=== PATIENT | male | born 1980 | race Hispanic/Latino ===

== ENCOUNTER 2021-01-25 11:18 | Inpatient (IN) | payer SELFPAY ==
[~2021-01-25 11:18] MED LIST: Iopamidol-370 76% 500 ML 1 ML ONE
[2021-01-25] MEDS ORDERED: Acetaminophen 500 MG TAB ONE (11:50)
[2021-01-25] MEDS ORDERED: Ibuprofen 800 MG TAB ONE (11:50)
[2021-01-25 12:19] LABS: ALT (SGPT) 45 U/L (8-55); AST (SGOT) 99 U/L (5-34); Albumin 3.5 g/dL (3.5-5.0); Alkaline Phosphatase 42 U/L (40-110); Anion Gap 15 mmol/L (10-20); BUN (Urea Nitrogen) 14 mg/dL (8.9-20.6); Bilirubin, Total 1.9 mg/dL (0.2-1.2); CK (CPK) 250 U/L (30-200); Calc. Creatinine Clearance 0 mL/min (70-130); Carbon Dioxide 22 mmol/L (22-29); Chloride 103 mmol/L (98-107); Globulin 2.3 g/dL (2.4-3.5); Glucose 223 mg/dL (70-105); Lipase 37 U/L (8-78); Potassium 3.9 mmol/L (3.5-5.1); Protein, Total 5.8 g/dL (6.0-8.3); Sodium 136 mmol/L (136-145)
[2021-01-25 12:44] LABS: Hemoglobin 4.3 g/dL (14.0-18.0); Mean Corpuscular HGB CONC 35.9 g/dL (32.0-36.0); Mean Corpuscular Hemoglobin 43.8 pg (27.0-31.0); Mean Platelet Volume 12.7 fL (7.4-10.4); Platelet Count 37 thou/uL (130-400); RBC Distribution Width 28.9 % (11.5-14.5); Red Blood Cell (RBC) Count 0.99 mill/uL (4.70-6.10); Reflex for Review?? YES; White Blood Cell (WBC) Count 4.3 thou/uL (4.8-10.8)
[2021-01-25 12:45] LABS: Anisocytosis MODERATE=16-30 cells (100X) (0-5/hpf); Band 15 % (5-11); Basophilic Stippling SLIGHT = 1-2 cells (100X) (None Seen); Hypochromia SLIGHT = 6-15 cells (100X) (0-5/hpf); Lymphocytes 39 % (21-51); MDiff Complete? YES; Macrocytosis MODERATE=16-30 cells (100X) (0-5/hpf); Monocytes 3 % (0-10); Neutrophil 38 % (42-75); Nucleated RBC 8 % (0); Platelet Morphology Comment Appears Decreased; Polychromasia MARKED = >4 cells (100X) (0-2/hpf); Reactive Lymphocytes 5 % (0-10); Schistocytes SLIGHT = 2-5 cells (100X) (0-1/hpf); Tear Drops MODERATE= 6-15 cells (100X) (0-1/hpf)
[2021-01-25 13:29] LABS: SARS-CoV-2 NAA Rapid Test Not Detected (NotDetected)
[2021-01-25 14:02] LABS: INR-International Normal Ratio 1.3; PTT 43.5 sec (22.9-36.1); Prothrombin Time 16.9 sec (12.0-14.7)
[2021-01-25 14:09] LABS: Alcohol Less than 10 mg/dL (Less than 10); Salicylate Less than 8.0 mg/dL (15.0-30.0)
[2021-01-25] MEDS ORDERED: Multivitamins, Adult 10 ML, Thiamine HCl 100 MG, Folic Acid 1 MG in Dextrose 5 %-0.45 %... IV SCH (14:15)
[2021-01-25] MEDS ORDERED: Pantoprazole 40 MG VIAL ONE (14:35)
[2021-01-25] MEDS ORDERED: Ondansetron PF 4 MG/2 ML Vial IVP PRN (15:47)
[2021-01-25] MEDS ORDERED: Acetaminophen 325 MG TAB PO PRN (15:47)
[2021-01-25 17:03] LABS: Bacteria/HPF None Seen HPF (None Seen); Bilirubin Negative (Negative); Blood, Urine Negative (Negative); Clarity Clear (Clear); Glucose, Urine (Dipstick) 50 mg/dL (Negative); Ketone, Urine 40 mg/dL (Negative); Leukocyte Negative Leu/uL (Negative); Nitrite Negative (Negative); Protein, Urine (Dipstick) 20 mg/dL (Neg-Trace); RBC/HPF 0-3 HPF (0-3); Specific Gravity, Urine 1.046 (1.002-1.036); Squamous Epithelial None Seen HPF (0-3); WBC/HPF 0-3 HPF (0-3); pH, Urine 6.5 (5.0-9.0)
[2021-01-25 17:06] LABS: Urine Culture Reflex No No
[2021-01-25 17:17] VITALS: BMI 21.6
[2021-01-25 17:18] LABS: Amphetamine Not Detected (NotDetected); Barbiturates Screen Not Detected (NotDetected); Benzodiazepine Screen Not Detected (NotDetected); Cocaine Metabolite Screen Not Detected (NotDetected); Medtox Control Line Valid? VALID (VALID); Medtox Reader # READER 4; Methadone Not Detected (NotDetected); Methamphetamine Not Detected (NotDetected); Opiate Screen Not Detected (NotDetected); Oxycodone Screen Not Detected (NotDetected); Phencyclidine (PCP) Not Detected (NotDetected); THC/Cannabinoid Screen Not Detected (NotDetected); Tricyclic Screen Not Detected (NotDetected)
[2021-01-25] MEDS: Pantoprazole 40 MG VIAL IVP SCH (22:26)
[2021-01-26] MEDS ORDERED: Dextrose 50% Abboject 50 ML SYRINGE IVP PRN (00:45)
[2021-01-26] MEDS ORDERED: Dextrose 5% in Water 1,000 ML IV PRN (00:45)
[2021-01-26] MEDS ORDERED: HumaLOG 300 UNITS/3 ML VIAL SC PRN (00:45)
[2021-01-26 05:32] LABS: Hemoglobin A1c 6.4 % (4.0-6.0)
[2021-01-26 05:53] LABS: ALT (SGPT) 45 U/L (8-55); AST (SGOT) 72 U/L (5-34); Albumin 3.1 g/dL (3.5-5.0); Alkaline Phosphatase 42 U/L (40-110); Anion Gap 11 mmol/L (10-20); BUN (Urea Nitrogen) 13 mg/dL (8.9-20.6); Bilirubin, Total 2.2 mg/dL (0.2-1.2); Calc. Creatinine Clearance 128 mL/min (70-130); Calcium 7.8 mg/dL (7.8-10.44); Carbon Dioxide 23 mmol/L (22-29); Cardiac Risk 4.3 (Less than 4.5); Chloride 106 mmol/L (98-107); Cholesterol 43 mg/dl (< 200 Desired); Glucose 252 mg/dL (70-105); HDL Cholesterol 10 mg/dL (>60 Neg Risk); LDL Cholesterol, Calculated 11 mg/dL; Potassium 4.2 mmol/L (3.5-5.1); Protein, Total 5.1 g/dL (6.0-8.3); Sodium 136 mmol/L (136-145); Triglycerides 110 mg/dL (Less than 150)
[2021-01-26 06:09] LABS: Vitamin B12 173 pg/mL (211-911)
[2021-01-26 06:13] LABS: Anisocytosis MARKED = >30 cells (100X) (0-5/hpf); Band 19 % (5-11); Eosinophils 1 % (0-10); Hemoglobin 8.7 g/dL (14.0-18.0); Lymphocytes 42 % (21-51); MDiff Complete? YES; Mean Corpuscular HGB CONC 36.3 g/dL (32.0-36.0); Mean Corpuscular Hemoglobin 37.6 pg (27.0-31.0); Mean Platelet Volume 16.2 fL (7.4-10.4); Monocytes 5 % (0-10); Neutrophil 33 % (42-75); Nucleated RBC 8 % (0); Platelet Count 37 thou/uL (130-400); Platelet Morphology Comment Appears Decreased; RBC Distribution Width 24.6 % (11.5-14.5); White Blood Cell (WBC) Count 3.4 thou/uL (4.8-10.8)
[2021-01-26 06:16] LABS: HBCM Index 0.07 S/CO (0-0.79); HBSAg Index 0.25 S/CO (0-0.99); Hep A IgM AB Non-Reactive (NonReactive); Hep A IgM S/CO 0.11 S/CO (0-0.79); Hep B Surf Ag Non-Reactive S/CO (NonReactive); Hep C IgG Ab Non-Reactive (NonReactive); Hep C Index 0.05 S/CO (0-0.79); Hepatitis B Core IgM Abs Non-Reactive (NonReactive)
[2021-01-26] MEDS: Cyanocobalamin 1000 MCG/ML VIAL IM SCH (09:15)
[2021-01-26] MEDS: Pantoprazole 40 MG VIAL IVP SCH ×2 (09:16→19:53)
[2021-01-26] MEDS ORDERED: PROPOFOL 40 ML ONE (10:15)
[2021-01-26] MEDS ORDERED: Ketamine 50 MG/ML (10ML VIAL) ONE (10:15)
[2021-01-26] MEDS ORDERED: PROPOFOL 200 MG/20 ML VIAL ONE (10:47)
[2021-01-26] MEDS: Sodium Chloride 0.9% 1,000 ML IV SCH ×2 (11:58→19:53)
[2021-01-26] MEDS: Multivitamins, Adult 10 ML, Folic Acid 1 MG, Thiamine HCl 100 MG in Dextrose 5 %-0.45 %... IV SCH (13:03)
[2021-01-26] MEDS: HumaLOG 300 UNITS/3 ML VIAL SC PRN (17:44)
[2021-01-26] MEDS ORDERED: Vancomycin 1.5 GRAM/300 ML BAG 1.5 GM in Premix Bag 1 BAG IVPB SCH ×2 (18:00→21:00)
[2021-01-27] MEDS: Vancomycin 1 GM in Premix Bag 1 BAG IVPB SCH ×3 (01:10→18:01)
[2021-01-27 05:23] LABS: ALT (SGPT) 38 U/L (8-55); AST (SGOT) 52 U/L (5-34); Albumin 2.8 g/dL (3.5-5.0); Alkaline Phosphatase 40 U/L (40-110); Anion Gap 8 mmol/L (10-20); BUN (Urea Nitrogen) 10 mg/dL (8.9-20.6); Bilirubin, Total 1.7 mg/dL (0.2-1.2); Calc. Creatinine Clearance 121 mL/min (70-130); Calcium 7.7 mg/dL (7.8-10.44); Carbon Dioxide 24 mmol/L (22-29); Chloride 110 mmol/L (98-107); Globulin 1.9 g/dL (2.4-3.5); Glucose 180 mg/dL (70-105); Potassium 3.9 mmol/L (3.5-5.1); Protein, Total 4.7 g/dL (6.0-8.3); Sodium 138 mmol/L (136-145)
[2021-01-27 05:41] LABS: HIV (1/2) Antibody/Antigen Non-Reactive (NonReactive); HIV 1/2 INDEX 0.14 S/CO (<1.00)
[2021-01-27] MEDS: HumaLOG 300 UNITS/3 ML VIAL SC PRN (05:57)
[2021-01-27 06:01] LABS: Anisocytosis MODERATE=16-30 cells (100X) (0-5/hpf); Band 5 % (5-11); Eosinophils 4 % (0-10); Hemoglobin 8.7 g/dL (14.0-18.0); Lymphocytes 54 % (21-51); MDiff Complete? YES; Macrocytosis SLIGHT = 6-15 cells (100X) (0-5/hpf); Mean Corpuscular HGB CONC 36.4 g/dL (32.0-36.0); Mean Corpuscular Hemoglobin 37.9 pg (27.0-31.0); Mean Platelet Volume 7.5 fL (7.4-10.4); Monocytes 3 % (0-10); Neutrophil 33 % (42-75); Nucleated RBC 3 % (0); Platelet Count 40 thou/uL (130-400); Platelet Morphology Comment Appears Decreased; Polychromasia SLIGHT = 2-3 cells (100X) (0-2/hpf); Reactive Lymphocytes 1 % (0-10); Red Blood Cell (RBC) Count 2.29 mill/uL (4.70-6.10); Schistocytes SLIGHT = 2-5 cells (100X) (0-1/hpf); Tear Drops SLIGHT = 2-5 cells (100X) (0-1/hpf); White Blood Cell (WBC) Count 3.5 thou/uL (4.8-10.8)
[2021-01-27] MEDS: Pantoprazole 40 MG VIAL IVP SCH (08:29)
[2021-01-27] MEDS: Cyanocobalamin 1000 MCG/ML VIAL IM SCH (08:29)
[2021-01-27] MEDS: Multivitamins, Adult 10 ML, Folic Acid 1 MG, Thiamine HCl 100 MG in Dextrose 5 %-0.45 %... IV SCH (10:18)
[2021-01-27] MEDS: Sodium Chloride 0.9% 1,000 ML IV SCH (10:18)
[2021-01-27 17:43] LABS: Vancomycin, Trough 15.1 ug/mL
[2021-01-28] MEDS: Vancomycin 1 GM in Premix Bag 1 BAG IVPB SCH ×2 (03:39→10:10)
[2021-01-28] MEDS: Cyanocobalamin 1000 MCG/ML VIAL IM SCH (08:09)
[2021-01-28] MEDS: HumaLOG 300 UNITS/3 ML VIAL SC PRN (11:36)
[2021-01-28 12:34] VITALS: BP 111/68; TEMP 98.2
== END 2021-01-28 17:30 | disposition home or self-care (01) | DRG 810 ==
LOC: ERS 11:18 → 2NO 13:48 → ONC 01-27 18:30
PROVIDERS: ADMIT Hospitalist; ATTEND Hospitalist
PROC: 30233N1 Transfusion of Nonautologous Red Blood Cells into Peripheral Vein, Percutaneous Approach (ICD-10-PCS; 2021-01-25)
PROC: 0DB78ZZ Excision of Stomach, Pylorus, Via Natural or Artificial Opening Endoscopic (ICD-10-PCS; principal; 2021-01-26)
DX: D61.818 Other pancytopenia (principal); Z20.822 Contact with and (suspected) exposure to COVID-19; D62 Acute posthemorrhagic anemia; F17.210 Nicotine dependence, cigarettes, uncomplicated; F10.10 Alcohol abuse, uncomplicated; D51.9 Vitamin B12 deficiency anemia, unspecified; K70.10 Alcoholic hepatitis without ascites; E11.65 Type 2 diabetes mellitus with hyperglycemia; Z79.4 Long term (current) use of insulin; Z79.899 Other long term (current) drug therapy
CPT/HCPCS: 0240U; 36415; 36416; 36430; 71045; 71275; 74176; 80053; 80061; 80074; 80202; 80306; 80307; 81001; 82010; 82140; 82274; 82550; 82607; 82746; 83036; 83605; 83690; 83880; 84145; 84443; 84484; 85025; 85060; 85379; 85610; 85730; 86140; 86850; 86900; 86901; 87040; 87149; 87389; 88305; 93005; 96365; 96374; C9113; J1815; J2704; J3370; J3411; J3420; J7042; P9016; Q9967